=== PATIENT | female | born 1985 | race Caucasian/White ===

== ENCOUNTER 2018-01-10 14:46 | Emergency (ER) | payer OTHER ==
[~2018-01-10 14:46] MED LIST: ADVIL200 M2 PO; AMOXICILLIN500 M3 PO; TRAMADOL HCL50 M1 PO
== END 2018-01-10 15:50 | disposition admitted as inpatient to this hospital (09) ==
LOC: ERH 14:46
DX: R10.9 Unspecified abdominal pain (principal)